=== PATIENT | male | born 2000 | race Hispanic/Latino ===

== ENCOUNTER 2018-01-23 13:45 | Emergency (ER) | payer OTHER ==
[2018-01-23 14:58] LABS: Absolute Lymphocytes (CBC) 0.9 K/uL (0.7-4.9); Absolute Monocytes 0.5 K/uL (0.1-1.3); Absolute Neutrophil 10.4 K/uL (1.8-8.0); Basophils % 0.2 % (0-1.3); Eosinophils % 0.9 % (0-4.4); Hematocrit 48.2 % (39.6-49.0); Lymphocytes % 7.5 % (15.3-44.8); MCV 81.3 fL (80-100); MPV 8.2 fL (7.6-11.3); Monocytes % 4.2 % (3.3-12.3); RBC Red Blood Cell Count 5.92 M/uL (4.33-5.43)
[2018-01-23] MEDS ORDERED: NA CHLORIDE 0.9% 1,000 ML ONE (15:02)
[2018-01-23] MEDS ORDERED: ONDANSETRON 4 MG/2 ML VIAL ONE (15:02)
[2018-01-23] MEDS ORDERED: MORPHINE 4 MG/ML SYR ONE (15:02)
[2018-01-23 15:03] LABS: Bicarbonate 25 mEq/L (21-31); Glucose Level 89 mg/dL (65-120); Lipase 19 U/L (22-51); Potassium 3.9 mEq/L (3.6-5.0); Sodium Level 138 mEq/L (135-145)
[2018-01-23 15:09] LABS: ALT/SGPT 28 IU/L (10-60); AST/SGOT 25 IU/L (10-42); Albumin 4.6 g/dL (3.2-5.5); Alkaline Phosphatase 85 IU/L (42-121); BUN Blood Urea Nitrogen 14 mg/dL (6-20); Bilirubin Direct 0.1 mg/dL (0-0.2); Bilirubin Total 1.2 mg/dL (0.3-1.2); Glomerular Filtration Rate > 90 mL/min (=/>90); Protein, Total 7.2 g/dL (6.0-8.3)
[2018-01-23 15:12] LABS: Blood Morphology Comment NOT SEEN (NOT SEEN); Platelet Estimate ADEQ; Urine White Blood Cell Casts OK
--- NOTE | 2018-01-23 15:44 | RAD REPORT ---
EXAM DESCRIPTION: CT - Abdomen Pelvis W Contrast - 01/23/2018 3:23 pm CLINICAL HISTORY: Abdominal pain/lower abdominal pain with diarrhea since yesterday COMPARISON: December 2017 TECHNIQUE: Computed axial tomography of the abdomen pelvis was obtained. 100 cc Isovue-300 was admin istered intravenously. Oral contrast was not requested which limits evaluation of bowel. All CT scans are performed using dose optimization technique as appropriate and may include automated exposure control or mA/KV adjustment according to patient size. FINDINGS: The liver, spleen, pancreas, adrenal and kidneys appear unremarkable. There is no evidence of diverticulitis. The appendix is normal. Fluid is present within nondilated small bowel IMPRESSION: Fluid within nondilated small bowel may indicate an enteritis
--- NOTE | 2018-01-23 16:38 | EDPHYS ---
Physician Documentation [facility] Name: Maureen Giron Age: 17 yrs Sex: Male : 2000 Arrival Date: 01/23/2018 Time: 13:46 Bed 14 Private MD: ED Physician Joseph White HPI: 01/23 16:00 This 17 yrs old Male presents to ER via Ambulatory with complaints of pm1 Diarrhea, Vomiting, Fever. 16:00 The patient presents to the emergency department with nausea, vomiting, diarrhea, pm1 abdominal pain, of the right lower quadrant and left lower quadrant, and does not radiate. Onset: The symptoms/episode began/occurred yesterday. Possible causes: unknown. The symptoms are aggravated by food , The symptoms are alleviated by nothing. Associated signs and symptoms: Pertinent positives: abdominal pain, diarrhea, fever, nausea, vomiting, Pertinent negatives: dysuria. Severity of symptoms: in the emergency department the symptoms are worse. The patient has not experienced similar symptoms in the past. The patient has not recently seen a physician. Historical: - Allergies: 13:51 No Known Allergies; la1 - PMHx: 13:51 Autism; la1 - PSHx: 13:51 None; la1 - Immunization history:: Adult Immunizations up to date. - Social history:: Smoking status: Patient uses tobacco products, denies chronic smoking, but will smoke occasionally. ROS: 16:00 Eyes: Negative for injury, pain, redness, and discharge, ENT: Negative for injury, pm1 pain, and discharge. 16:00 Neck: Negative for injury, pain, and swelling, Cardiovascular: Negative for chest pain, palpitations, and edema, Respiratory: Negative for shortness of breath, cough, wheezing, and pleuritic chest pain. 16:00 Back: Negative for injury and pain, : Negative for injury, bleeding, discharge, and swelling, MS/Extremity: Negative for injury and deformity, Skin: Negative for injury, rash, and discoloration, Neuro: Negative for headache, weakness, numbness, tingling, and seizure. 16:00 Constitutional: Positive for fever. 16:00 Abdomen/GI: Positive for abdominal pain, nausea, vomiting, and diarrhea. Exam: 16:00 Constitutional: This is a well developed, well nourished patient who is awake, alert, pm1 and in no acute distress. Head/Face: Normocephalic, atraumatic. Eyes: Pupils equal round and reactive to light, extra-ocular motions intact. Lids and lashes normal. Conjunctiva and sclera are non-icteric and not injected. Cornea within normal limits. Periorbital areas with no swelling, redness, or edema. ENT: Nares patent. No nasal discharge, no septal abnormalities noted. Tympanic membranes are normal and external auditory canals are clear. Oropharynx with no redness, swelling, or masses, exudates, or evidence of obstruction, uvula midline. Mucous membranes moist. Neck: Trachea midline, no thyromegaly or masses palpated, and no cervical lymphadenopathy. Supple, full range of motion without nuchal rigidity, or vertebral point tenderness. No Meningismus. Chest/axilla: Normal chest wall appearance and motion. Nontender with no deformity. No lesions are appreciated. Cardiovascular: Regular rate and rhythm with a normal S1 and S2. No gallops, murmurs, or rubs. Normal PMI, no JVD. No pulse deficits. Respiratory: Lungs have equal breath sounds bilaterally, clear to auscultation and percussion. No rales, rhonchi or wheezes noted. No increased work of breathing, no retractions or nasal flaring. 16:00 Back: No spinal tenderness. No costovertebral tenderness. Full range of motion. Skin: Warm, dry with normal turgor. Normal color with no rashes, no lesions, and no evidence of cellulitis. MS/ Extremity: Pulses equal, no cyanosis. Neurovascular intact. Full, normal range of motion. 16:00 Abdomen/GI: Inspection: abdomen appears normal, Bowel sounds: normal, Palpation: soft, moderate abdominal tenderness, in all quadrants, mass, is not appreciated, rebound tenderness, is not appreciated. 16:00 Neuro: Orientation: is normal, Motor: is normal, moves all fours. Vital Signs: 13:51 BP 112 / 84; Pulse 104; Resp 14; Temp 98.2(O); Pulse Ox 100% on R/A; Weight 89.81 kg; la1 Height 5 ft. 7 in. (170.18 cm); 15:03 BP 111 / 76; Pulse 88; Resp 16 S; Pulse Ox 99% on R/A; jl7 15:32 BP 106 / 60; Pulse 88; Resp 16; Pulse Ox 99% on R/A; mh5 16:30 BP 104 / 56; Pulse 75; Resp 16 S; Pulse Ox 100% on R/A; jl7 13:51 Body Mass Index 31.01 (89.81 kg, 170.18 cm) la1 MDM: 14:09 Patient medically screened. pm1 16:36 Data reviewed: vital signs. Data interpreted: Pulse oximetry: on room air is 99 %. pm1 Interpretation: normal. Counseling: I had a detailed discussion with the patient and/or guardian regarding: the historical points, exam findings, and any diagnostic results supporting the discharge/admit diagnosis, lab results, radiology results, the need for outpatient follow up, to return to the emergency department if symptoms worsen or persist or if there are any questions or concerns that arise at home. 01/23 14:13 Order name: Basic Metabolic Panel; Complete Time: 16:12 pm1 01/23 14:13 Order name: CBC with Diff; Complete Time: 16:12 pm1 01/23 14:13 Order name: Hepatic Function; Complete Time: 16:12 pm1 01/23 14:13 Order name: Lipase; Complete Time: 16:12 pm1 01/23 14:26 Order name: CT Abd/Pelvis - W/Contrast: IV contrast only; Complete Time: 16:12 pm1 01/23 15:12 Order name: CBC Smear Scan; Complete Time: 16:12 EDMS 01/23 14:13 Order name: IV Saline Lock; Complete Time: 15:00 pm1 01/23 14:13 Order name: Labs collected and sent; Complete Time: 15:00 pm1 Administered Medications: 14:50 Drug: NS 0.9% 1000 ml Route: IV; Rate: 1000 ml; Site: right antecubital; jl7 14:51 Drug: Zofran 4 mg Route: IVP; Site: right antecubital; jl7 14:53 Drug: morphine 4 mg Route: IVP; Site: right antecubital; jl7 Disposition: 01/23/18 16:37 Discharged to Home. Impression: Nausea and vomiting, Diarrhea, unspecified, Unspecified abdominal pain. - Condition is Stable. - Discharge Instructions: Abdominal Pain, Adult, Food Choices to Help Relieve Diarrhea, Adult, Diarrhea, Nausea and Vomiting, Viral Gastroenteritis. - Prescriptions for Bentyl 20 mg Oral Tablet - take 1 tablet by ORAL route every 6 hours As needed; 20 tablet. Zofran 4 mg Oral Tablet - take 1 tablet by ORAL route every 8 hours As needed; 20 tablet. Phenergan 25 mg Rectal Suppository - insert 1 suppository by RECTAL route every 6 hours As needed; 12 suppository. - Medication Reconciliation Form, Thank You Letter, Prescription Opioid Use, Work release form form. - Follow up: Emergency Department; When: As needed; Reason: Worsening of condition. Follow up: Private Physician; When: 2 - 3 days; Reason: Recheck today's complaints, Continuance of care, Re-evaluation by your physician. - Problem is new. - Symptoms have improved. Addendum: 01/26/2018 08:25 Co-signature as Attending Physician, Joseph White MD I agree with the assessment and c linn plan of care. Signatures: Dispatcher [employer] EDJoseph Gayle MD MD cha Attema, Lee RN RN la1 Taras Lemons NP ACID BATH MIXER pm1 Lety Ortega RN RN jl7
--- NOTE | 2018-01-23 16:38 | ER ---
Nurse's Notes [facility] Name: Maureen Giron Age: 17 yrs Sex: Male : 2000 Arrival Date: 01/23/2018 Time: 13:46 Bed 14 Private MD: Diagnosis: Nausea and vomiting;Diarrhea, unspecified;Unspecified abdominal pain Presentation: 01/23 13:50 Presenting complaint: Patient states: I have been having lower abd pain and diarrhea la1 since yesterday, pt reports fever at home. Transition of care: patient was not received from another setting of care. Onset of symptoms was January 23, 2018. Care prior to arrival: None. 13:50 Method Of Arrival: Ambulatory la1 13:50 Acuity: DELMER 3 la1 Historical: - Allergies: 13:51 No Known Allergies; la1 - PMHx: 13:51 Autism; la1 - PSHx: 13:51 None; la1 - Immunization history:: Adult Immunizations up to date. - Social history:: Smoking status: Patient uses tobacco products, denies chronic smoking, but will smoke occasionally. Screenin:00 Abuse screen: Denies threats or abuse. Denies injuries from another. Nutritional jl7 screening: No deficits noted. Tuberculosis screening: No symptoms or risk factors identified. Fall Risk IV access (20 points). Total Lindsay Fall Scale indicates No Risk (0-24 pts). Assessment: 14:00 General: Appears in no apparent distress. uncomfortable, Behavior is calm, cooperative, jl7 appropriate for age. Pain: Complains of pain in right upper quadrant, left upper quadrant, right lower quadrant and left lower quadrant Pain does not radiate. Pain currently is 4 out of 10 on a pain scale. Pain began 1 day ago. Is continuous. Neuro: Level of Consciousness is awake, alert, obeys commands, Oriented to person, place, time, situation. Cardiovascular: Patient's skin is warm and dry. Respiratory: Airway is patent Respiratory effort is even, unlabored, Respiratory pattern is regular, symmetrical. GI: Abdomen is round non-distended, Bowel sounds present X 4 quads. Abd is soft X 4 quads Abdomen is tender to palpation X 4 quads. Reports diarrhea, nausea, vomiting, since yesterday. : No signs and/or symptoms were reported regarding the genitourinary system. EENT: No signs and/or symptoms were reported regarding the EENT system. Derm: Skin is pink, warm \T\ dry. Musculoskeletal: No signs and/or symptoms reported regarding the musculoskeletal system. 14:55 Reassessment: No changes from previously documented assessment. Patient and/or family jl7 updated on plan of care and expected duration. Pain level reassessed. Patient is alert, oriented x 3, equal unlabored respirations, skin warm/dry/pink. 16:45 Reassessment: Patient and/or family updated on plan of care and expected duration. Pain jl7 level reassessed. Patient is alert, oriented x 3, equal unlabored respirations, skin warm/dry/pink. Vital Signs: 13:51 BP 112 / 84; Pulse 104; Resp 14; Temp 98.2(O); Pulse Ox 100% on R/A; Weight 89.81 kg; la1 Height 5 ft. 7 in. (170.18 cm); 15:03 BP 111 / 76; Pulse 88; Resp 16 S; Pulse Ox 99% on R/A; jl7 15:32 BP 106 / 60; Pulse 88; Resp 16; Pulse Ox 99% on R/A; mh5 16:30 BP 104 / 56; Pulse 75; Resp 16 S; Pulse Ox 100% on R/A; jl7 13:51 Body Mass Index 31.01 (89.81 kg, 170.18 cm) la1 ED Course: 13:46 Patient arrived in ED. as 13:51 Triage completed. la1 13:51 Arm band placed on left wrist. la1 13:58 Taras Lemons NP is PHCP. pm1 13:58 Joseph White MD is Attending Physician. pm1 13:59 Lety Ortega RN is Primary Nurse. jl7 14:00 Patient has correct armband on for positive identification. Placed in gown. Bed in low jl7 position. Call light in reach. Side rails up X 1. Pulse ox on. NIBP on. 14:28 Radiology exam delayed due to lab results not completed at this time. (BUN/Creatinine). jg1 14:44 Initial lab(s) drawn, by me, sent to lab. Inserted saline lock: 22 gauge in right mh5 antecubital area, using aseptic technique. Blood collected. 15:21 CT Abd/Pelvis - W/Contrast: IV contrast only In Process Unspecified. EDMS 15:[address] via wheelchair. nj 15:24 CT completed. Patient tolerated procedure well. Patient moved back from CT. nj 17:17 No provider procedures requiring assistance completed. IV discontinued, intact, jl7 bleeding controlled, No redness/swelling at site. Pressure dressing applied. Administered Medications: 14:50 Drug: NS 0.9% 1000 ml Route: IV; Rate: 1000 ml; Site: right antecubital; jl7 14:51 Drug: Zofran 4 mg Route: IVP; Site: right antecubital; jl7 14:53 Drug: morphine 4 mg Route: IVP; Site: right antecubital; jl7 Outcome: 16:37 Discharge ordered by MD. pm1 17:17 Discharged to home ambulatory. jl7 17:17 Condition: stable 17:17 Discharge instructions given to patient, Instructed on discharge instructions, follow up and referral plans. medication usage, Demonstrated understanding of instructions, follow-up care, medications, Prescriptions given X 3. 17:18 Patient left the ED. jl7 Signatures: Dispatcher [employer] Jackie Roque Amelia as Attema, Lee, RN RN la1 Taras Lemons, NEREYDA D[employer]EL STATIONARY ENGINEER pm1 Zachariah Sun [facility] Lety Ortega RN RN jl7
== END 2018-01-23 17:18 | disposition home or self-care (01) ==
LOC: ER 13:45
DX: R19.7 Diarrhea, unspecified (principal); R10.9 Unspecified abdominal pain; Z72.0 Tobacco use
CPT/HCPCS: 36415; 74177; 80048; 80076; 83690; 85025; 96374; 96375; 99284; J2405; J7030; Q9967